=== PATIENT | female | born 1965 | race Caucasian/White ===

== ENCOUNTER 2020-06-25 08:57 | Day surgery (SDC) | payer BC ==
[2020-06-25] VITALS (7 sets, daily range): BP systolic 94–117; BP diastolic 59–67
[~2020-06-25] VITALS: Ht 160 cm; Wt 53.1 kg
[2020-06-25] MEDS ORDERED: CETIRIZINE HCL10 MG PO (09:32)
[2020-06-25] MEDS ORDERED: HARD NAILS2500 MCG PO (09:34)
[2020-06-25] MEDS ORDERED: LEXAPRO10 MG ORAL (09:37)
--- NOTE | 2020-06-25 10:19 | Pre-Procedure Note/Attestation ---
Pre-Procedure Note/Attestation Complete Prior to Procedure Planned Procedure: not applicable Procedure Narrative: colonoscopy Indications for Procedure Pre-Operative Diagnosis: screening Attestation I attest that I discussed the nature of the procedure; its benefits; risks and complications; and alternatives (and the risks and benefits of such alternatives), prior to the procedure, with the patient (or the patient's legal desk representative). I attest that, if there was a reasonable possibility of needing a blood tra nsfusion, the patient (or the patient's legal desk representative) was given the [facility] standardized written summary, pursuant to the [employer] [place] Blood Safety Act ([place] Health and Safety Code # 1645, as amended). I attest that I re-evaluated the patient just prior to the surgery and that there has been no change in the patient's H&P, except as documented below: Fer Gutierrez MD Jun 25, 2020 10:19
--- NOTE | 2020-06-25 10:20 | Short Stay Surgery H&P ---
History of Present Illness History of Present Illness Chief Complaint screening colon HPI Davina Lamb is a 54 year old female who was admitted on for Colon Screening Patient History Allergies: Coded Allergies: SULFA (SULFONAMIDE ANTIBIOTICS) (Verified Allergy, Intermediate, rash, 06/25/20) PAST MEDICAL HISTORY: (1) History of appendectomy Medication History Scheduled Biotin (Hard Nails), 2,500 MCG PO DAILY, (Reported) Cetirizine Hcl (ZyrTEC*), 10 MG PO DAILY, (Reported) Escitalopram Oxalate* (Lexapro*), 5 MG ORAL DAILY, (Reported) Review of Systems Cardiovascular: Reports: no symptoms Respiratory: Reports: no symptoms Skeletal: Reports: no symptoms Gastrointestinal: Reports: no symptoms Neurologic: Reports: no symptoms Endocrine: Reports: no symptoms Hematologic: Reports: no symptoms Physical Exam Vital Signs Last Vital Signs Date Time Temp Pulse Resp B/P (MAP) Pulse Ox O2 Delivery O2 Flow Rate FiO2 06/25/20 10:15 Room Air 06/25/20 09:30 98.4 54 18 115/64 100 Skin: normal HENT: normal Heart: normal Lungs: normal Abdomen: normal Extremities: normal Plan Plan of Care colonoscopy Attestation Are the patient's medical conditions optimized for surgery? Attestation Response: yes Fer Gutierrez MD Jun 25, 2020 10:20
[2020-06-25] MEDS ORDERED: LR 1000ml ONE (10:30)
[2020-06-25] MEDS ORDERED: Lidocaine 1% MPF 10mg/ml 5ml ONE (10:30)
--- NOTE | 2020-06-25 10:33 | Endoscopy Procedure Note ---
Endoscopy Procedure Note General Indication for Procedure: screening Procedures Performed: colonoscopy Operative Findings/Diagnosis: hemorrhoids Specimen: yes Pt Tolerated Procedure Well: Yes Estimated Blood Loss: none Anesthesia Anesthesiologist: matthew Anesthesia: MAC Inserted Devices Implant(s) used?: No Quality Quality of Bowel Preparation: Good Did scope reach the cecum?: Yes Was there any complications?: No GI Core Measures 50 yrs or older w/o bx or poly: No 10yrs. F/U recommended: Yes If not recommended, why?: Above average risk 18 years or older w/prev. colo: No Fer Gutierrez MD Jun 25, 2020 10:33
--- NOTE | 2020-06-25 10:57 | Anethesia Preoperative Eval ---
Anesthesia Pre-op PMH/ROS General Date of Evaluation: Jun 25, 2020 Time of Evaluation: 10:31 Anesthesiologist: uri ASA Score: ASA 2 Mallampati Score Class I : Soft palate, uvula, fauces, pillars visible Class II: Soft palate, uvula, fauces visible Class III: Soft palate, base of uvula visible Class IV: Only hard plate visible Mallampati Classification: Class II Surgeon: jaleesa Diagnosis: colon screening Surgical Procedure: colonoscopy Anesthesia History: none Social History: smoking - nonsmoker Family History: no anesthesia problems Allergies: Coded Allergies: SULFA (SULFONAMIDE ANTIBIOTICS) (Verified Allergy, Intermediate, rash, 06/25/20) Medications: see eMAR Patient NPO?: Yes Past Medical History Neurologic/Psychiatric: Reports: depression/anxiety HEENT: Reports: other - deviated septum Hematology/Immune: Reports: other - COVID-19 negative 06/25/2020 PSxH Narrative: appendectomy, ovarian cyct removal Anesthesia Pre-op Phys. Exam Physician Exam Last Vital Signs Date Time Temp Pulse Resp B/P (MAP) Pulse Ox O2 Delivery O2 Flow Rate FiO2 06/25/20 10:15 Room Air 06/25/20 09:30 98.4 54 18 115/64 100 Constitutional: NAD Neurologic: CN 2-12 intact Cardiovascular: RRR Respiratory: CTA Gastrointestinal: S/NT/ND Airway Exam Mallampati Score: Class II MO: full Neck: flexible TMD: 2fb ROM: full Teeth: intact Anesthesia Pre-op A/P Labs Microbiology Date/Time Source Procedure Growth Status 06/23/20 10:25 Nasopharynx SARS-CoV-2 RdRp Gene Assay - Final Complete Studies Pre-op Studies: EKG - sinus bradycardia Risk Assessment & Plan Assessment: asa2 Plan: mac Status Change Before Surgery: No Pre-Antibiotics Drug: Regine Welsh MD Jun 25, 2020 10:57
[2020-06-25] MEDS ORDERED: LR 1000ml 1,000 ML IVLG SCH (11:00)
[2020-06-25] MEDS ORDERED: Midazolam 2mg/2ml Inj IVP PRN (11:00)
[2020-06-25] MEDS ORDERED: Labetalol 5mg/ml 20ml vial IV PRN (11:00)
[2020-06-25] MEDS ORDERED: fentaNYL 100 mcg/2 mL IV PRN (11:00)
[2020-06-25] MEDS ORDERED: DiphenhydrAMINE 50mg/ml Inj IVP PRN (11:00)
[2020-06-25] MEDS ORDERED: Atropine Inj 1mg/10ml Syr IVP PRN (11:00)
--- NOTE | 2020-06-25 11:17 | Immediate Post-Op Evaluation ---
Immediate Post-Op Evalulation Immediate Post-Op Evalulation Procedure: colonoscopy Date of Evaluation: Jun 25, 2020 Time of Evaluation: 11:13 IV Fluids: 500ml lr Blood Products: none Estimated Blood Loss: negligible Blood Pressure Systolic: 99 Blood Pressure Diastolic: 60 Pulse Rate: 55 Respiratory Rate: 18 O2 Sat by Pulse Oximetry: 99 Temperature (Fahrenheit): 97.3 Pain Score (1-10): 0 Nausea: No Vomiting: No Complications none Patient Status: awake, reacts, patent Hydration Status: adequate Drug: Regine Welsh MD Jun 25, 2020 11:17
--- NOTE | 2020-06-25 11:19 | 48 Hour Post Anesthesia Eval ---
Post Anesthesia Evaluation Procedure: colonoscopy Date of Evaluation: Jun 25, 2020 Time of Evaluation: 11:17 Blood Pressure Systolic: 111 0: 62 Pulse Rate: 55 Respiratory Rate: 18 Temperature (Fahrenheit): 97.3 O2 Sat by Pulse Oximetry: 99 Airway: patent Nausea: No Vomiting: No Pain Intensity: 0 Hydration Status: adequate Cardiopulmonary Status: stable Mental Status/LOC: patient returned to baseline Post-Anesthesia Complications: none Follow-up care needed: N/A Regine Kaye MD Jun 25, 2020 11:19
--- NOTE | 2020-06-25 12:30 | Procedure Note ---
DATE OF PROCEDURE: 06/25/2020 SURGEON: Fer Gutierrez MD. PROCEDURE: Colonoscopy. ANESTHESIA: Per Dr. Barros. INSTRUMENT: Olympus adult flexible colonoscope. INDICATION: Screening colonoscopy. REASON FOR PROCEDURE: The procedure, risks, benefits, and possible consequences, including hemorrhage, aspiration, perforation and infection, and alternative treatments, were explained to the patient/legal guardian by Dr. Fer Gutierrez and the patient/legal guardian understood and accepted these risks. DESCRIPTION OF PROCEDURE: After informed consent was obtained and the patient was adequately sedated, first rectal exam was performed, which was positive for internal hemorrhoids. Then, the scope was advanced from rectum into the cecum, then subsequently to terminal ileum. Quality of prep was very good. The patient underwent colonoscopy examination. No mass, polyp, diverticula or any other pathology was seen. Retroflexion in the rectum showed evidence of internal hemorrhoids. SUMMARY OF FINDINGS: Normal colonoscopy examination except for internal hemorrhoids. RECOMMENDATIONS: Repeat colonoscopy in 10 years. Fer Gutierrez M.D. DR: MATTHIEU JOB#: [id number] CC:
--- NOTE | 2020-06-27 16:24 | Cardiology Report ---
APPROVED REPORT EKG Measurement Heart [id number] [place] 140P31 [id number] <Conclusion> Sinus bradycardia Otherwise normal ECG
== END 2020-06-25 12:15 | disposition home or self-care (01) ==
LOC: GAS 08:57
DX: Z12.11 Encounter for screening for malignant neoplasm of colon (principal); K64.8 Other hemorrhoids; Z90.89 Acquired absence of other organs; Z79.899 Other long term (current) drug therapy; Z88.2 Allergy status to sulfonamides; F32.9 Major depressive disorder, single episode, unspecified; F41.9 Anxiety disorder, unspecified; R00.1 Bradycardia, unspecified
CPT/HCPCS: 45378; 93005; 94003; J2704; J7120; U0002; 94150